=== PATIENT | male | born 1955 | race Caucasian/White ===

== ENCOUNTER → 2023-07-06 12:00 | Outpatient (REF) | payer BC, SELFPAY | LOC: DHSLP 12:00 | PROVIDERS: ATTENDING PHYSICIAN Internal Medicine Cardiovascular Disease; FAMILY PHYSICIAN Internal Medicine | DX: G47.33 Obstructive sleep apnea (adult) (pediatric) (principal); R09.02 Hypoxemia | CPT/HCPCS: 95800 ==

== ENCOUNTER 2023-08-06 06:08 | Day surgery (SDC) | payer BC, SELFPAY ==
--- NOTE | 2023-07-16 11:57 | CM ---
Patient is scheduled for an elective L TKR on 08/06/23- he is a same day patient. Spoke with patient prior to surgery. Introduced role of Orthopedic Navigator. Patient reports that he lives with his significant other in a two story home. There are
four steps to enter without hand rails. There is a flight of steps to the second floor with left rail ascending. He currently functions independently. He has a cane and rolling walker. He has never had VN services. PCP is Silvino Barone.
Discussed orthopedic program and post surgical plans. Reviewed that he will have VN services initially (medicare.gov website and ratings reviewed) and will then start outpatient PT. Patient selects [facility] (face sheet faxed to [facility] to facilitate
confirmation of benefits) for his home care needs and will go to [facility] for outpatient PT. He will set up appointment for Thursday08/10/23.
Patient is in agreement with plan and states that his significant other will be home with him.
Patient will complete online education.
Plan: Orthopedic Navigator will remain available to assist with the care of patient and will reassess discharge needs after surgery.
[2023-07-22 08:59] VITALS: BMI 34.1
[2023-07-22 09:03] LABS: Hematocrit 43.8 % (39.0-52.0); Hemoglobin 14.9 g/dL (13.0-18.0); Mean Corpuscular Hgb 32.6 pg (27.0-31.0); Mean Corpuscular Volume 95.8 fL (80.0-94.0); Mean Platelet Volume 10.6 fL (7.4-10.4); Platelet Count 258 10^3/uL (130-400); Red Blood Cell Count 4.57 10^6/uL (4.70-6.10); Red Cell Dist. Width 13.2 % (11.5-14.5); White Blood Cell Count 8.2 10^3/uL (4.8-10.8)
[2023-07-22 09:22] LABS: ALT (SGPT) 19 U/L (0-50); AST (SGOT) 22 U/L (17-59); Albumin 3.8 g/dl (3.5-5.0); Alkaline Phosphatase 101 U/L (38-126); Blood Urea Nitrogen 27 mg/dl (9-20); Calcium 9.8 mg/dl (8.4-10.2); Carbon Dioxide 30 mmol/L (22-30); Chloride 100 mmol/L (98-107); Estimated Creatinine Clearance 70 ml/min; Glucose 119 mg/dl (70-99); Potassium 4.1 mmol/L (3.5-5.1); Sodium 139 mmol/L (135-145); Total Protein 6.7 g/dl (6.3-8.2); eGFR > 60.00
[2023-07-22 09:29] LABS: Glycohemoglobin (HgbA1c) 5.8 % (4.0-5.6)
[2023-07-22 14:40] VITALS: BMI 34.1
[2023-08-06] VITALS (18 sets, daily range): BP systolic 120–163; BP diastolic 63–86; PULSE 66; O2SAT 94; BMI 34.1
[2023-08-06] MEDS: CELEBREX 200 MG PO (06:26)
[2023-08-06] MEDS: TYLENOL 650 MG PO (06:26)
[2023-08-06] MEDS: NORMOSOL-R 1000 IV (06:26)
--- NOTE | 2023-08-06 06:49 | W.DS.TRANS ---
DC Summary - Auditor
-
Discharge Instructions:
Sleep Apnea Risk Intermediate
Discharge Diagnosis/Procedures L CLAUDE Sawyer 08/06/23
Diet As tolerated
Activity With Walker
Driving Restrictions No driving
Bathing Restrictions OK to Shower
Other Services [facility],PT
Instructions:
Stand-Alone Forms: SDS Total Hip and Knee D/C
Changes to Home Medications: Yes
Discharge Medications:
DC Medications w/original date entered in [employer]
atorvastatin 40 mg tablet 40 mg PO QPM #30 tabs 02/26/20
furosemide 40 mg tablet 40 mg PO DAILY #30 tabs 02/26/20
multivitamin 1 tab PO DAILY 03/11/22
rivaroxaban 20 mg tablet (Xarelto) 20 mg PO QPM 03/11/22
metoprolol succinate 50 mg tablet,extended release 24 hr 50 mg PO BID 07/20/23
dexamethasone 4 mg tablet 4 mg PO BID inflammation #6 tabs 07/22/23
famotidine 20 mg tablet 20 mg PO HS GI prophylaxis #30 tabs 07/22/23
gabapentin 300 mg capsule 300 mg PO BID sleep/pain #14 caps 07/22/23
mupirocin 2 % topical ointment 1 applic topical BID infection prevention #1 tube 07/22/23
ondansetron 4 mg disintegrating tablet 4 mg PO Q6H PRN n/v #20 tabs 07/22/23
oxycodone 5 mg tablet 5 - 10 mg PO Q6HPRN PRN 1 tab moderate-2 tabs severe pain #30 tabs 07/22/23
tramadol 50 mg tablet 50 mg PO QID Ongoing therapy #30 tabs 07/22/23
acetaminophen 325 mg capsule (Tylenol) 650 mg PO QID #2 caps 08/06/23
amlodipine 10 mg tablet 10 mg PO HS #0 tabs 08/06/23
docusate sodium 100 mg capsule (Colace) 100 mg PO BID stool softner #1 cap 08/06/23
losartan 100 mg tablet 100 mg PO DAILY #0 tabs 08/06/23
magnesium hydroxide 400 mg/5 mL oral suspension (Milk of Magnesia) 30 ml PO HS PRN Constipation #1 mL 08/06/23
rivaroxaban 10 mg tablet (Xarelto) 10 mg PO QPM Blood clot prevention/tx #3 tabs 08/06/23
sennosides 8.6 mg tablet (Senokot) 17.2 mg PO BID laxative #2 tabs 08/06/23
Home Medication Changes
rivaroxaban 20 mg tablet (Xarelto) 20 mg PO QPM 03/11/22 --HOLD
dexamethasone 4 mg tablet 4 mg PO BID inflammation #6 tabs 07/22/23
famotidine 20 mg tablet 20 mg PO HS GI prophylaxis #30 tabs 07/22/23
gabapentin 300 mg capsule 300 mg PO BID sleep/pain #14 caps 07/22/23
mupirocin 2 % topical ointment 1 applic topical BID infection prevention #1 tube 07/22/23
ondansetron 4 mg disintegrating tablet 4 mg PO Q6H PRN n/v #20 tabs 07/22/23
oxycodone 5 mg tablet 5 - 10 mg PO Q6HPRN PRN 1 tab moderate-2 tabs severe pain #30 tabs 07/22/23
tramadol 50 mg tablet 50 mg PO QID Ongoing therapy #30 tabs 07/22/23
acetaminophen 325 mg capsule (Tylenol) 650 mg PO QID #2 caps 08/06/23
rivaroxaban 10 mg tablet (Xarelto) 10 mg PO QPM Blood clot prevention/tx #3 tabs 08/06/23
Pending Results: No
[2023-08-06] MEDS: SUBLIMAZE 25 MCG IV ×2 (09:19→09:37)
--- NOTE | 2023-08-06 10:58 | CM ---
Patient had planned L TKR today. Met with patient at bedside to review discharge plans. Patient will be returning home today with services through [facility]. On Thursday, 08/09, patient will start outpatient PT at [facility]. Reviewed MD follow up in two
weeks and patient is aware of need to schedule appointment.
Patient has his rolling walker here with him.
PT and VN were kept updated as to progress and discharge plans.
[2023-08-06] MEDS: ANCEF 5 IV (12:20)
[2023-08-06] MEDS: FLUSH (NSS) 2 FLUSH IV (12:20)
[2023-08-06] MEDS: FLOMAX 0.800000000000000044 MG PO (13:41)
[2023-08-06] MEDS: LASIX 10 MG IV (15:32)
== END 2023-08-06 16:10 | disposition home health service (06) ==
LOC: SDS 06:08
PROVIDERS: ATTENDING PHYSICIAN Orthopaedic Surgery; FAMILY PHYSICIAN Internal Medicine; OTHER PHYSICIAN Internal Medicine Cardiovascular Disease; OTHER PHYSICIAN Physician Assistant Medical
DX: M17.12 Unilateral primary osteoarthritis, left knee (principal)
CPT/HCPCS: 27447; 36415; 73560; 80053; 83036; 85027; 87070; 97161; 97530; C1713; C1776

== ENCOUNTER 2023-09-09 09:27 | Day surgery (SDC) | payer BC, SELFPAY ==
[2023-08-26 08:03] VITALS: BMI 31.3
[2023-08-26 08:23] LABS: % Basophils 0.5 % (0-2); % Eosinophils 1.7 % (0-6); % Immature Granulocytes 0.7 % (0-0.5); % Lymphocytes 30.7 % (20.5-51.1); % Monocytes 6.6 % (1.7-9.3); % Neutrophils 59.8 % (42.2-75.2); Absolute Basophils 0.1 10^3/uL (0-0.2); Absolute Eosinophils 0.2 10^3/uL (0-0.7); Absolute Immature Granulocytes 0.1 10^3/uL (0-0.05); Absolute Lymphocytes 3.7 10^3/uL (1.2-3.4); Absolute Monocytes 0.8 10^3/uL (0.1-0.6); Absolute Neutrophils 7.2 10^3/uL (1.4-6.5); Hematocrit 45.9 % (39.0-52.0); Hemoglobin 15.5 g/dL (13.0-18.0); Mean Corp Hgb Conc. 33.8 g/dL (33.0-37.0); Mean Corpuscular Hgb 31.9 pg (27.0-31.0); Mean Corpuscular Volume 94.4 fL (80.0-94.0); Mean Platelet Volume 9.5 fL (7.4-10.4); Nucleated Red Blood Cells % 0 % (-); Platelet Count 440 10^3/uL (130-400); Red Blood Cell Count 4.86 10^6/uL (4.70-6.10); Red Cell Dist. Width 13.1 % (11.5-14.5); White Blood Cell Count 12.1 10^3/uL (4.8-10.8)
[2023-08-26 08:37] LABS: INR 1.67; PT 19.8 Sec (11.4-14.6)
[2023-08-26 08:41] LABS: ALT (SGPT) 26 U/L (0-50); AST (SGOT) 22 U/L (17-59); Albumin 4.2 g/dl (3.5-5.0); Alkaline Phosphatase 95 U/L (38-126); Blood Urea Nitrogen 39 mg/dl (9-20); Calcium 9.4 mg/dl (8.4-10.2); Carbon Dioxide 27 mmol/L (22-30); Chloride 105 mmol/L (98-107); Estimated Creatinine Clearance 66 ml/min; Glucose 124 mg/dl (70-99); Magnesium 2.2 mg/dl (1.6-2.3); Sodium 140 mmol/L (135-145); Total Bilirubin 1.1 mg/dl (0.2-1.3); Total Protein 7.1 g/dl (6.3-8.2); eGFR > 60.00
[2023-09-09] VITALS (14 sets, daily range): BP systolic 120–159; BP diastolic 56–103
[2023-09-09] MEDS: TYLENOL 1000 MG PO (11:12)
[2023-09-09 12:30] LABS: ACT-LR - POC 244 Seconds (116-155)
[2023-09-09 12:45] LABS: ACT-LR - POC 268 Seconds (116-155)
[2023-09-09 13:01] LABS: ACT-LR - POC 388 Seconds (116-155)
[2023-09-09 13:07] LABS: ACT-LR - POC 324 Seconds (116-155)
[2023-09-09 13:33] LABS: ACT-LR - POC 371 Seconds (116-155)
[2023-09-09 13:59] LABS: ACT-LR - POC 348 Seconds (116-155)
[2023-09-09 14:53] LABS: ACT-LR - POC 295 Seconds (116-155)
[2023-09-09 15:20] LABS: ACT-LR - POC 150 Seconds (116-155)
[2023-09-09] MEDS: LASIX 20 MG IV (16:36)
--- NOTE | 2023-09-09 16:36 | ITS.CL.ABL ---
Agent Telegrapher - Ablation
Ablation
Procedure Report:
Primary Power Press Supervisor: Elmer Clements MD
Procedure Date: 09/09/2023
Patient History:
Patient is a pleasant 67-year-old male with a past medical history significant for paroxysmal likely persistent atrial fibrillation, paroxysmal atrial flutter, hypertension, CKD 2, hyperlipidemia, osteoarthritis.
See H&P for complete details.
Indication:
Symptomatic persistent atrial fibrillation
Symptomatic paroxysmal atrial flutter
Arrhythmia Specific History:
Prior Medical Therapies for Rate and Rhythm Control:
X Beta-erika
[ ] Calcium channel-erika
[ ] Amiodarone
[ ] Dronederone
[ ] Sotalol
[ ] Flecainide
[ ] Dofetilide
[ ] Options limited by bradycardia
[ ] Options limited by comorbid renal disease
Prior Procedural Therapies for AF/AFL:
[ ] Cardioversion
[ ] Pulmonary Vein Isolation
[ ] Posterior Wall Isolation
[ ] Additional lines (Specify)
[ ] Surgical Miller-MAZE or PVI (Specify)
Procedure Performed:
X AF ablation procedure (15532) -- includes LA/CS pacing, trans-septal, 3D mapping, + ICE
[ ] +IV drug (50885)
X +Other Arrhythmia (20509)
[ ] +Other AF Line/ablation (89272)
Risks and expected recovery has been explained in detail. Alternative options have been explored, and in a shared-decision making fashion we have decided that this was the most appropriate procedure.
Method
NPO status confirmed. Grounding pad applied. Defibrillator pads applied. Continuous surface ECG, pulse oximetry, and blood pressure were monitored. Procedure was performed under general anesthesia, with anesthesia services.
Both groins were clipped, prepped with Chloraprep, and draped in sterile fashion. Time out was called. Local anesthesia administered with bupivacaine. The right and left femoral veins were accessed for catheter placement, using ultrasound guidance,
micro-puncture needle/wire, and modified seldinger technique. 3 sheaths were placed. The following catheters were used:
X Tacticath SE (D/F Curve) ablation catheter
X TactiFlex SE (D/F Curve) ablation catheter
X Viewflex 9Fr ICE catheter
X Inquiry decapolar 6Fr diagnostic catheter
[ ] CRD Hex 6Fr
[ ] Arctic Front Advance Cryoballoon ([ ]28mm[ ]23mm)
[ ] Achieve Advance mapping catheter ([ ]15mm[ ]20mm)
X FlexCath Contour 10 Fr with PulseSelect PFA Catheter
X Advisor HD Grid Mapping Catheter, SE
[ ] Acuson AcuNav 8 Fr ICE catheter
[ ]Other: [ ]
Intracardiac ultrasound (ICE) was carefully advanced into the right atrium to guide sheath placement over a J-wire, catheter placement, guide trans-septal puncture, identify potential complications, identify anatomic structures and ensure proper
contact between ablation catheter and tissue.
Heparin was given prior to trans-septal puncture. Heparin was given to achieve and maintain a target ACT of 300-400 seconds throughout the procedure.
Trans-septal access was performed under ICE guidance. The trans-septal puncture was performed with a SafeSept wire through a Brockenbrough needle assembly through the steerable sheath. The wire was visualized as it entered the LSPV and system
advanced under ICE guidance and fluoroscopy into the LA. The Brockenbrough needle assembly, SafeSept wire and sheath dilator were removed under negative pressure. LA pressure was measured and recorded.
ICE and 3D mapping was performed to identify relevant cardiac structures. A careful 3D map was created to assess for regions of low-voltage and abnormal electrogram signals using HD grid mapping catheter and PulseSelect catheter. Additional mapping
was performed as outlined below.
Prior to ablation, glycopyrrolate was provided. PulseSelect catheter was advanced over J-wire to the ostium of each vein. Pulmonary vein isolation was performed with ostial and antral lesions in a circumferential manner. Contact was visualized via
EAM, ICE, fluoroscopy, and EGM signals. Atrial flutter at 210 ms TCL was noted with concentric activation arising from the RA. LA mapping in the atrial flutter noted breakout from the RA. Entrainment via CS catheter showed CTI involvement. Sinus
rhythm was restored with a 200J synchronized DCCV and a post-ablation voltage/activation map was performed in sinus rhythm. Entrance and exit block were confirmed for each vein.
An electroanatomic three-dimensional map of the right atrium was constructed using the HD grid catheter, with careful attention to anatomic landmarks, including the coronary sinus, IVC-RA and SVC-RA junction, tricuspid valve annulus, and region of
the His bundle electrogram.
An ablation line was created from the tricuspid annulus to the IVC in the 6:00 position (SWEDISH clock). Power was titrated between 30 and 40 Lea. The line was completed during CS pacing, and bidirectional block was achieved. The ablation line was
mapped to ensure widely spaced double potentials, and after a 20 minute waiting period, reconnection was noted. Mapping along the line was repeated demonstrating area of reconnection. Ablation was completed and bidirectional block was noted.
Following an additional waiting period, bidirectional block was confirmed.
Catheter and sheath were removed from the left atrium and post-ablation intracardiac echo evaluation was consistent with pre-ablation with no changes and no pericardial effusion and there is no left atrial thrombus or left ventricle thrombus seen.
Electrophysiology study was performed. Hemostasis was obtained with Vascade for each sheath and with manual pressure. Protamine was used for reversal.
Estimated Blood Loss
5-10 mL
Complications
None
Fluoroscopy: 11.8 minutes; 43.6 mGy; DAP 6.91
Baseline Intervals:
Rhythm: AF
Post-Procedure Intervals:
NJ: 161 ms
QRS: 88 ms
QT: 381 ms
QTc: 443 ms
A-A: 739 ms
R-R: 739 ms
AVWB: 370 ms
AVNERP: 600/310 ms
AERP: 600/230
Recommendations
- Bedrest with straight-leg precautions as ordered
- Anticipate same day discharge if patient meeting clinical metrics
- Resume home medications as indicated
- Ok to resume anticoagulation tonight if patient and groin sites stable
- PPI daily for 30 days
- Plan for follow-up in office as scheduled
Dick Hollis,
Clinical Cardiac Pattern Chain Builder
cc: Elmer Clements MD; Dick Barone MD
--- NOTE | 2023-09-09 17:09 | W.PN.UPDATE ---
Update Note
Progress Note Update
67 yo WM s/p PVI/AFL ablation (same day). He feels good, no cp, sob, jason clears, b/l groins with VASCADE, c/d/i, soft. EKG SR. He will continue Xarelto dose at 630p at home. He will continue metoprolol and we will add PPI for 30 days. Activity
restrictions reviewed. He was given lasix 20mg IV for >2000cc intraop as well as flomax 0.4mg for his hx of prostate cancer with XRT. He will f/u Dr. Cortés in 3 mo. He is for d/c home after 630p if groins stable and able to void.
Patient History:
Patient is a pleasant 67-year-old male with a past medical history significant for paroxysmal likely persistent atrial fibrillation, paroxysmal atrial flutter, hypertension, CKD 2, hyperlipidemia, osteoarthritis.
See H&P for complete details.
Indication:
Symptomatic persistent atrial fibrillation
Symptomatic paroxysmal atrial flutter
Procedure Performed:
X AF ablation procedure (15956) -- includes LA/CS pacing, trans-septal, 3D mapping, + ICE
[ ] +IV drug (98995)
X +Other Arrhythmia (00218)
[ ] +Other AF Line/ablation (18281)
== END 2023-09-09 18:30 | disposition home or self-care (01) ==
LOC: CATH 09:27
PROVIDERS: ATTENDING PHYSICIAN Internal Medicine Cardiovascular Disease; FAMILY PHYSICIAN Internal Medicine; OTHER PHYSICIAN Internal Medicine Cardiovascular Disease
DX: I48.0 Paroxysmal atrial fibrillation (principal); I48.3 Typical atrial flutter; I10 Essential (primary) hypertension; E78.5 Hyperlipidemia, unspecified; R00.1 Bradycardia, unspecified; E66.9 Obesity, unspecified; Z68.31 Body mass index [BMI] 31.0-31.9, adult; Z85.46 Personal history of malignant neoplasm of prostate; Z87.891 Personal history of nicotine dependence; Z79.01 Long term (current) use of anticoagulants
CPT/HCPCS: C1732; C1894; C1769; C2630; C1892; C1759; 36415; 75572; 76937; 80053; 83735; 85025; 85347; 85610; 86850; 86900; 86901; 93005; 93655; 93656; Q9967

== ENCOUNTER → 2023-10-28 08:17 | Outpatient (REF) | payer BC, SELFPAY | LOC: HWRAD 08:17 | PROVIDERS: ATTENDING PHYSICIAN Internal Medicine; FAMILY PHYSICIAN Internal Medicine | DX: Z87.891 Personal history of nicotine dependence (principal) | CPT/HCPCS: 71271 ==

== ENCOUNTER → 2024-01-07 06:40 | Day surgery (SDC) | payer BC, SELFPAY | LOC: GI 06:40 | PROVIDERS: ATTENDING PHYSICIAN Internal Medicine Gastroenterology | DX: Z12.11 Encounter for screening for malignant neoplasm of colon (principal); K64.8 Other hemorrhoids; K57.30 Diverticulosis of large intestine without perforation or abscess without bleeding; D12.5 Benign neoplasm of sigmoid colon; K62.1 Rectal polyp; K63.5 Polyp of colon | CPT/HCPCS: 45385; 45380; 88305 ==

== ENCOUNTER → 2025-04-19 08:07 | Outpatient (REF) | payer BC, SELFPAY | LOC: HWRCS 08:07 | PROVIDERS: ATTENDING PHYSICIAN Internal Medicine Cardiovascular Disease; FAMILY PHYSICIAN Internal Medicine | DX: I48.0 Paroxysmal atrial fibrillation (principal) | CPT/HCPCS: 93306 ==